=== PATIENT | female | born 1995 | race Caucasian/White ===

== ENCOUNTER 2016-09-02 16:40 | Emergency (ER) | payer OTHER ==
[~2016-09-02] VITALS: Ht 165.1 cm; Wt 69.5 kg
[~2016-09-02 16:40] MED LIST: ALBUTEROL SULF8.5 GM IH; DOCUSATE SODIU100 MG PO; ENDOCET 5-3251 EACH PO; FERROUS SULFAT325 MG PO; FLONASE16 G1 BOTH NARES; IBUPROFEN800 MG PO; IRON325 M1 PO; KEFLEX500 MG PO; MACROBID100 MG PO; MAGIC MOUTHWASH1 ML MM; MOTRIN400 MG PO; MUCUS RELIEF600 M1 PO; NAPROSYN500 MG PO; NO; PRENATAL TABLE1 EACH PO; TESSALON PERLE100 MG PO; VENTOLIN HFA18 GM IH
[2016-09-02 17:27] LABS: EOSINOPHIL (%) 0 % (0-5); HEMATOCRIT 35.8 % (36.0-46.0); IMMATURE GRANULOCYTE (%) 0.4 % (0.0-0.7); IMMATURE GRANULOCYTE COUNT 0.1 K/uL; INSTRUMENT ABS NEUTROPHIL CT 9.4 K/uL; LYMPHOCYTE COUNT 2.6 K/uL (1.0-2.8); MCH 26.8 PG (29.0-34.0); MCHC 32.7 G/DL (30.0-36.0); MCV 81.9 FL (83-99); MEAN PLAT.VOLUME 9.5 uM^3 (9.5-12.4); MONOCYTE (%) 12.5 % (3-12); MONOCYTE COUNT 1.7 K/uL (0-0.8); NEUTROPHIL (%) 68.2 % (45-76); NEUTROPHIL COUNT 9.4 K/uL (1.8-6.4); PLATELET COUNT 326 K/uL (156-360); RBC DIS.WIDTH-SD 44.8 % (39-53); RED BLOOD COUNT 4.37 M/uL (3.80-5.20); WHITE BLOOD COUNT 13.8 K/uL (4.1-10.2)
[2016-09-02 17:35] LABS: ADD MIUA? YES; BILIRUBIN NEGATIVE; BLOOD SMALL; COLOR AMBER ((YELLOW)); GLUCOSE (STRIP) NEGATIVE; KETONES NEGATIVE; LEUKOCYTES MODERATE; NITRITE POSITIVE; PROTEIN (STRIP) >=500; UROBILINOGEN 0.2 MG/DL (0.2-1.0)
[2016-09-02 17:36] LABS: CHLORIDE 101 mEq/L (99-109); POTASSIUM 3.3 mEq/L (3.7-5.4); SODIUM 136 mEq/L (136-147)
[2016-09-02 17:38] LABS: GLUCOSE 99 mg/dL (70-99)
[2016-09-02 17:39] LABS: ANION GAP 8 MEQ/L (2-14)
[2016-09-02 17:40] LABS: TOTAL BILIRUBIN 0.6 mg/dL (0.0-1.0)
[2016-09-02 17:41] LABS: ALKALINE PHOSPHATASE 67 IU/L (3-129)
[2016-09-02 17:42] LABS: GFR ESTIMATE (CALCULATED) > 59 mL/min/
[2016-09-02 17:43] LABS: UREA NITROGEN (BUN) 12 mg/dL (9-23)
[2016-09-02 17:45] LABS: LIPASE 10 U/L (1.0-51.0)
[2016-09-02 17:51] LABS: BACTERIA 3+ /HPF; EPITHELIAL CELLS 1+ /HPF; HYALINE CASTS 30-40 /LPF; MUCUS 4+ /LPF; RED BLOOD CELLS NONE SEEN /HPF (0-5); UNCLASSIFIED CRYSTALS 2+ /HPF; WHITE BLOOD CELLS TNTC /HPF (0-5)
[2016-09-02] MEDS ORDERED: INDOCIN25 MG PO (18:06)
[2016-09-02] MEDS ORDERED: KEFLEX500 MG PO (18:06)
[2016-09-02 18:32] VITALS: BP 112/62
== END 2016-09-02 18:44 | disposition home or self-care (01) ==
LOC: EME 16:40
PROVIDERS: Physician Assistant
DX: N12 Tubulo-interstitial nephritis, not specified as acute or chronic (principal); E86.0 Dehydration; D72.829 Elevated white blood cell count, unspecified
CPT/HCPCS: 74176; 80053; 81003; 83690; 85025; 87077; 87086; 87186; 99281; 99284; J0696

== ENCOUNTER 2017-02-13 15:30 | Emergency (ER) | payer OTHER ==
[~2017-02-13] VITALS: Ht 165.1 cm; Wt 67.4 kg
[~2017-02-13 15:30] MED LIST changes: +INDOCIN25 MG PO
[2017-02-13 16:17] LABS: ADD MIUA? YES; BILIRUBIN NEGATIVE; BLOOD SMALL; COLOR YELLOW ((YELLOW)); GLUCOSE (STRIP) NEGATIVE; KETONES NEGATIVE; LEUKOCYTES SMALL; NITRITE NEGATIVE; PROTEIN (STRIP) NEGATIVE; SPECIFIC GRAVITY 1.024 (1.000-1.030); UROBILINOGEN 0.2 MG/DL (0.2-1.0)
[2017-02-13 16:23] LABS: HEMATOCRIT 36.1 % (36.0-46.0); MCH 27.5 PG (29.0-34.0); MCHC 33.8 G/DL (30.0-36.0); MCV 81.3 FL (83-99); MEAN PLAT.VOLUME 9.7 uM^3 (9.5-12.4); PLATELET COUNT 273 K/uL (156-360); RED BLOOD COUNT 4.44 M/uL (3.80-5.20)
[2017-02-13 16:28] LABS: BACTERIA 2+ /HPF; EPITHELIAL CELLS 2+ /HPF; MUCUS 2+ /LPF; UCUL ADDED? YES
[2017-02-13 16:34] LABS: CHLORIDE 105 mEq/L (99-109); SODIUM 139 mEq/L (136-147)
[2017-02-13 16:36] LABS: GLUCOSE 92 mg/dL (70-99)
[2017-02-13 16:37] LABS: ANION GAP 9 MEQ/L (2-14)
[2017-02-13 16:38] LABS: TOTAL BILIRUBIN 0.5 mg/dL (0.0-1.0)
[2017-02-13 16:39] LABS: ALKALINE PHOSPHATASE 67 IU/L (3-129)
[2017-02-13 16:40] LABS: GFR ESTIMATE (CALCULATED) > 59 mL/min/
[2017-02-13 16:41] LABS: UREA NITROGEN (BUN) 18 mg/dL (9-23)
[2017-02-13 16:43] LABS: LIPASE 17 U/L (1.0-51.0)
[2017-02-13 16:48] LABS: QUANTITATIVE HCG < 4.0 MIU/ML
[2017-02-13] MEDS ORDERED: FLAGYL500 MG PO (18:58)
[2017-02-13] MEDS ORDERED: VIBRAMYCIN100 MG PO (18:58)
[2017-02-13 19:53] VITALS: BP 111/77
[2017-02-15 13:37] LABS: CHLAMYDIA TRACHOMATIS NEGATIVE; NEISSERIA GONORRHOEAE NEGATIVE
== END 2017-02-13 19:55 | disposition home or self-care (01) ==
LOC: EME 15:30
PROVIDERS: Physician Assistant Medical
DX: N72 Inflammatory disease of cervix uteri (principal); Z87.440 Personal history of urinary (tract) infections; J45.909 Unspecified asthma, uncomplicated
CPT/HCPCS: 76856; 80053; 81003; 83690; 84702; 85027; 87077; 87086; 87186; 87210; 87491; 87591; J0696